=== PATIENT | female | born 1995 | race Caucasian/White ===

== ENCOUNTER 2019-09-22 09:43 | Emergency (ER) | payer SELFPAY ==
[~2019-09-22] VITALS: Ht 157.5 cm; Wt 63.2 kg
[2019-09-22] MEDS ORDERED: NS 1,900 ML in IV 1 EA IV ONE (10:45)
[2019-09-22 11:46] LABS: BASO % 0.2 % (0.0-1.0); HEMATOCRIT 41.3 % (36.0-47.0); HEMOGLOBIN 13.1 g/dl (12.0-15.5); LYMPH # 0.7 10^3/uL (1.5-5.0); LYMPH % 4.7 % (24.0-44.0); MEAN CORPUSCULAR HEMOGLOBIN 30.2 pg (27.0-33.0); MEAN CORPUSCULAR HGB CONC 31.7 g/dl (32.0-36.5); MEAN CORPUSCULAR VOLUME 95.2 fl (80.0-96.0); MONO # 1.1 10^3/uL (0.0-0.8); MONO % 7.8 % (0.0-5.0); NEUTROPHILS # 12.1 10^3/uL (1.5-8.5); NEUTROPHILS % 86.9 % (36.0-66.0); PLATELET COUNT, AUTOMATED 277 10^3/uL (150-450); RED BLOOD COUNT 4.34 10^6/uL (4.00-5.40); WHITE BLOOD COUNT 13.9 10^3/uL (4.0-10.0)
[2019-09-22 12:09] LABS: ALBUMIN 3.5 GM/DL (3.2-5.2); ALT/SGPT 19 U/L (12-78); BILIRUBIN,DIRECT 0.4 MG/DL (0.0-0.2); BILIRUBIN,TOTAL 1.4 MG/DL (0.2-1.0); BLOOD UREA NITROGEN 9 MG/DL (7-18); CALCIUM LEVEL 8.8 MG/DL (8.5-10.1); CARBON DIOXIDE LEVEL 25 MEQ/L (21-32); CHLORIDE LEVEL 103 MEQ/L (98-107); CREATININE FOR GFR 0.63 MG/DL (0.55-1.30); GLOMERULAR FILTRATION RATE > 60.0 (>60); GLUCOSE, FASTING 102 MG/DL (70-100); LIPASE 37 U/L (73-393); POTASSIUM SERUM 3.1 MEQ/L (3.5-5.1); SODIUM LEVEL 135 MEQ/L (136-145); TOTAL PROTEIN 7.4 GM/DL (6.4-8.2)
[2019-09-22] MEDS ORDERED: IBUPROFEN 800 MG TAB PO ONE (13:15)
--- NOTE | 2019-09-22 14:21 | REP ---
REASON: Cough. PRIORS None. FINDINGS: The technique utilized in obtaining the radiograph has magnified the cardiac silhouette and accentuated the interstitial markings. The superior mediastinal structures are midline. The cardiac silhouette is unremarkable in size, shape, and position. The diaphragmatic surfaces of the lungs are regular, and the costophrenic angles are clear. The pulmonary hernandez are clear. The imaged osseous structures are intact. IMPRESSION: There is no acute cardiopulmonary disease. Electronically Signed by Andrea Stewart DO 09/22/2019 04:01 P
[2019-09-22 14:44] LABS: MONO REFLEX EBV COMP NEGATIVE (NEGATIVE)
[2019-09-22] MEDS ORDERED: ACETAMINOPHEN 500 MG TAB PO ONE (14:45)
[2019-09-22] MEDS ORDERED: ISOVUE-370 76% 100ML VIAL As Ordered ONE (15:40)
[2019-09-22] MEDS ORDERED: cefTRIAXone SOD 1 GM in D5W MINI-BAG PLUS 50 ML IV ONE (15:45)
[2019-09-22 15:49] VITALS: BP 124/70
[2019-09-22] MEDS ORDERED: CIPR-249 PO (16:23)
--- NOTE | 2019-09-23 14:01 | REP ---
REASON: Fever, nausea, vomiting, no abdominal pain. CONTRAST: 100 mL [id number]-[id number]. The lung bases are clear. The liver, gallbladder, spleen, pancreas, adrenal glands, and left kidney are within normal limits. Patchy low density seen throughout the right kidney with slight right perinepheric stranding. The abdominal aorta and para-aortic regions are within normal limits. The bowel loops and their mesenteries are within normal limits. There is no free fluid or free air in the abdomen or pelvis. There is no intra-abdominal or intrapelvic mass or adenopathy. Bone window technique throughout the examination shows the osseous structures to be within normal limits. IMPRESSION: Evidence of early pyelonephritis on the right. Electronically Signed by Andrea Stewart DO 09/24/2019 08:25 A
[2019-09-23 16:13] LABS: EBV VIRAL CAPSID AG IgM <36.0 U/mL (0.0-35.9)
== END 2019-09-22 16:50 | disposition home or self-care (01) ==
LOC: M ED 09:43
DX: N10 Acute pyelonephritis (principal); Z87.891 Personal history of nicotine dependence
CPT/HCPCS: 36415; 71045; 74177; 80048; 80076; 81001; 83605; 83690; 85025; 86308; 86664; 86665; 87040; 87088; 87186; 87486; 87581; 87633; 87798; 96360; 96361; 96365; 99284; J0696; Q9967

== ENCOUNTER 2023-04-30 11:07 | Emergency (ER) | payer SELFPAY ==
[~2023-04-30] VITALS: Ht 157.5 cm; Wt 72.5 kg
[~2023-04-30 11:07] MED LIST: CIPR-249 PO
[2023-04-30 11:08] VITALS: BP 140/85; TEMP 98.1; O2SAT 100
[2023-04-30 12:26] LABS: BASO % 0.4 % (0.0-1.0); EOS # 0.1 10^3/uL (0.0-0.5); EOS % 0.7 % (0.0-3.0); HEMATOCRIT 40.8 % (36.0-47.0); HEMOGLOBIN 12.7 g/dl (12.0-15.5); LYMPH # 1.2 10^3/uL (1.5-5.0); LYMPH % 14.4 % (24.0-44.0); MEAN CORPUSCULAR HEMOGLOBIN 28.3 pg (27.0-33.0); MEAN CORPUSCULAR HGB CONC 31.1 g/dl (32.0-36.5); MEAN CORPUSCULAR VOLUME 91.1 fl (80.0-96.0); MONO # 0.9 10^3/uL (0.0-0.8); MONO % 10.6 % (2.0-8.0); NEUTROPHILS % 72.9 % (36.0-66.0); PLATELET COUNT, AUTOMATED 297 10^3/uL (150-450); RED BLOOD COUNT 4.48 10^6/uL (4.00-5.40); WHITE BLOOD COUNT 8.2 10^3/uL (4.0-10.0)
[2023-04-30 12:55] LABS: ALBUMIN 2.8 G/DL (3.2-5.2); BILIRUBIN,DIRECT 0.4 MG/DL (<0.4); TOTAL PROTEIN 6.2 G/DL (5.7-8.2)
[2023-04-30] MEDS: ONDANSETRON 4MG 2ML VIAL IV ONE (13:18)
[2023-04-30] MEDS: NS 1,000 ML IV ONE (13:18)
[2023-04-30] MEDS: cefTRIAXone SOD 1 GM in D5W MINI-BAG PLUS 50 ML IV ONE (13:31)
[2023-04-30 14:25] LABS: RSV AMPLIFICATION NEGATIVE (NEGATIVE)
[2023-04-30] MEDS ORDERED: ONDA4TAB6 PO (15:14)
[2023-04-30] MEDS ORDERED: CEFD1CAP9 PO (15:14)
== END 2023-04-30 15:36 | disposition home or self-care (01) ==
LOC: M ED 11:07
DX: N39.0 Urinary tract infection, site not specified (principal); R42 Dizziness and giddiness; J02.9 Acute pharyngitis, unspecified; Z79.2 Long term (current) use of antibiotics; Z79.83 Long term (current) use of bisphosphonates
CPT/HCPCS: 80047; 80076; 81000; 81015; 83690; 84702; 85025; 87070; 87088; 87186; 87631; 87880; 96365; 96366; 96375; 99284; J0696; J2405